=== PATIENT | female | born 1980 | race Caucasian/White ===

== ENCOUNTER 2016-08-27 16:47 | Emergency (ER) | payer BC ==
[2016-08-27] MEDS ORDERED: DEXAMETHASONE 4 MG/ML VIAL ONE (20:41)
== END 2016-08-27 21:15 | disposition home or self-care (01) ==
LOC: ER 16:47
DX: J02.9 Acute pharyngitis, unspecified (principal); J03.90 Acute tonsillitis, unspecified; B34.9 Viral infection, unspecified; F17.210 Nicotine dependence, cigarettes, uncomplicated
CPT/HCPCS: 71020; 87804; 87880; 96372